=== PATIENT | male | born 1955 | race Caucasian/White ===

== ENCOUNTER 2018-02-08 08:46 | Outpatient (CLI) | payer OTHER | END 2018-02-08 09:20 | disposition home or self-care (01) | LOC: EKG 08:46 → LAB 08:46 | DX: C61 Malignant neoplasm of prostate (principal); I10 Essential (primary) hypertension; Z01.810 Encounter for preprocedural cardiovascular examination; Z01.811 Encounter for preprocedural respiratory examination; Z01.812 Encounter for preprocedural laboratory examination ==

== ENCOUNTER 2018-02-10 09:52 | Outpatient (CLI) | payer OTHER | END 2018-02-10 12:33 | disposition home or self-care (01) | LOC: LAB 09:52 | DX: D64.89 Other specified anemias (principal); Z01.812 Encounter for preprocedural laboratory examination; N39.0 Urinary tract infection, site not specified; C61 Malignant neoplasm of prostate; I10 Essential (primary) hypertension; D68.8 Other specified coagulation defects; E88.89 Other specified metabolic disorders ==

== ENCOUNTER 2018-02-20 08:00 | Inpatient (IN) | payer OTHER ==
[~2018-02-20] VITALS: Ht 182.9 cm; Wt 82.6 kg
[2018-02-20] MEDS ORDERED: ALTACE5 MG PO (10:38)
[2018-02-20] MEDS ORDERED: TRICOR145 MG PO (10:38)
== END 2018-02-23 14:37 | disposition home or self-care (01) | DRG 708 ==
LOC: O/R 02-21 05:55 → SURG 02-21 05:55 → SURH 02-21 08:00 → SURG 02-21 13:41
PROVIDERS: ADMIT Urology
PROC: 07TC0ZZ Resection of Pelvis Lymphatic, Open Approach (ICD-10-PCS; 2018-02-21)
PROC: 0VT30ZZ Resection of Bilateral Seminal Vesicles, Open Approach (ICD-10-PCS; 2018-02-21)
PROC: 0VT00ZZ Resection of Prostate, Open Approach (ICD-10-PCS; principal; 2018-02-21 12:00)
DX: C61 Malignant neoplasm of prostate (principal)

== ENCOUNTER 2018-02-24 13:02 | Emergency (ER) | payer OTHER ==
[~2018-02-24] VITALS: Ht 182.9 cm; Wt 82.6 kg
[~2018-02-24 13:02] MED LIST: ALTACE5 MG PO; TRICOR145 MG PO
[2018-02-25] MEDS ORDERED: NITROFURANTOIN1 GM (18:19)
[2018-02-25] MEDS ORDERED: TRAM1TAB98 (18:21)
[2018-02-25] MEDS ORDERED: NEURONTIN600 MG (18:22)
[2018-02-25] MEDS ORDERED: FERRETTS325 MG (18:22)
[2018-02-25] MEDS ORDERED: PERCOCET 5-3251 EACH (18:22)
[2018-02-25] MEDS ORDERED: ADULT ASPIRIN81 MG (18:23)
== END 2018-02-24 16:27 | disposition home or self-care (01) ==
LOC: ER 13:02
DX: T83.098A Other mechanical complication of other urinary catheter, initial encounter (principal); C61 Malignant neoplasm of prostate

== ENCOUNTER 2018-02-24 20:32 | Emergency (ER) | payer OTHER ==
[~2018-02-24] VITALS: Ht 182.9 cm; Wt 82.6 kg
[2018-02-25] MEDS ORDERED: NITROFURANTOIN1 GM (18:19)
[2018-02-25] MEDS ORDERED: TRAM1TAB98 (18:21)
[2018-02-25] MEDS ORDERED: NEURONTIN600 MG (18:22)
[2018-02-25] MEDS ORDERED: FERRETTS325 MG (18:22)
[2018-02-25] MEDS ORDERED: PERCOCET 5-3251 EACH (18:22)
[2018-02-25] MEDS ORDERED: ADULT ASPIRIN81 MG (18:23)
== END 2018-02-24 21:34 | disposition home or self-care (01) ==
LOC: ER 20:32
DX: T83.098A Other mechanical complication of other urinary catheter, initial encounter (principal)

== ENCOUNTER 2018-02-25 17:53 | Emergency (ER) | payer OTHER ==
[~2018-02-25] VITALS: Ht 182.9 cm; Wt 82.6 kg
[2018-02-25] MEDS ORDERED: NITROFURANTOIN1 GM (18:19)
[2018-02-25] MEDS ORDERED: TRAM1TAB98 (18:21)
[2018-02-25] MEDS ORDERED: FERRETTS325 MG (18:22)
[2018-02-25] MEDS ORDERED: NEURONTIN600 MG (18:22)
[2018-02-25] MEDS ORDERED: PERCOCET 5-3251 EACH (18:22)
[2018-02-25] MEDS ORDERED: ADULT ASPIRIN81 MG (18:23)
== END 2018-02-26 02:16 | disposition home or self-care (01) ==
LOC: ER 17:53 → CPU-OBS 17:54 → ER 02-26 02:16
DX: R07.89 Other chest pain (principal)
CPT/HCPCS: G0378; G0379; 93005

== ENCOUNTER 2018-02-27 11:37 | Outpatient (CLI) | payer OTHER ==
[~2018-02-27 11:37] MED LIST changes: +ADULT ASPIRIN81 MG; +FERRETTS325 MG; +NEURONTIN600 MG; +NITROFURANTOIN1 GM; +PERCOCET 5-3251 EACH; +TRAM1TAB98
== END 2018-02-27 11:56 | disposition home or self-care (01) ==
LOC: LAB 11:37
DX: D62 Acute posthemorrhagic anemia (principal); C61 Malignant neoplasm of prostate

== ENCOUNTER 2018-03-08 12:34 | Outpatient (CLI) | payer OTHER | END 2018-03-08 12:40 | disposition home or self-care (01) | LOC: LAB 12:34 | DX: N30.00 Acute cystitis without hematuria (principal) ==

== ENCOUNTER 2018-03-20 08:32 | Outpatient (CLI) | payer OTHER | END 2018-03-20 15:00 | disposition home or self-care (01) | LOC: LAB 08:32 | DX: C61 Malignant neoplasm of prostate (principal); N30.00 Acute cystitis without hematuria ==

== ENCOUNTER 2018-12-21 07:23 | Outpatient (CLI) | payer OTHER | END 2018-12-21 07:33 | disposition home or self-care (01) | LOC: LAB 07:23 | DX: C61 Malignant neoplasm of prostate (principal) ==